=== PATIENT | male | born 1945 | race Caucasian/White ===

== ENCOUNTER 2022-11-19 09:25 | Observation (INO) | payer MEDICARE, OTHER, SELFPAY ==
[2022-11-19] VITALS (7 sets, daily range): BP systolic 159–171; BP diastolic 78–88; PULSE 64–74; RESP 16–20; TEMP 36.4–36.8; O2SAT 93–97; BMI 26.4; BMI 27.6
--- NOTE | 2022-11-19 09:41 | CT_ITS ---
The [address] [address] Patient Name: KP SPEARS MRN: [id number] date: 1945 Sex: M Assigned Patient Location: ER Current Patient Location: Accession/Order Number: [id number] Exam Date: 11/19/2022 09:50 Report Date: 11/19/2022 10:17 At the request of: EDER CALDERON Procedure: CT chest wo con EXAM: CT chest wo con; [id number] REASON FOR EXAM: fall right side chest wall trauma TECHNIQUE: Helical CT images of the chest were obtained without contrast. Multiplanar reformats and maximum intensity projection images were generated at the scanner. Dose reduction technique used: Automated exposure control and/or adjustment of the mA and/or kV according to patient size and/or use of iterative reconstruction technique. COMPARISON: None FINDINGS: Note: Compared with contrasted CT exams, noncontrast images are less sensitive for the detection of various types of soft tissue, solid organ, and vascular pathologies. Chest: Support devices: None. Visualized Thyroid: Multinodular goiter with extension into the superior mediastinum. Chest wall: Mild bilateral gynecomastia. Deen/mediastinum/esophagus: No mass. Thoracic lymph nodes: Scattered benign granulomas calcifications are present within several mediastinal and bilateral hilar lymph nodes. No significant adenopathy. Heart and vasculature: -No pericardial effusion or aortic aneurysm. -Mitral and aortic valve replacements are present. -Moderate coronary artery calcifications. Visualized portions of the upper abdomen: Within normal limits. Musculoskeletal: -Nondisplaced fractures of the lateral right third through eighth ribs. -Healed left-sided rib fractures noted. Severe osteoarthritis of the left glenohumeral joint. Lungs/airways: -Solid 7 mm nodule in the anterolateral aspect of the right upper lobe (series 4 image 38). -Solid 6 mm nodule in the right middle lobe (series 4 image 53). -Solid 4 mm nodule in the caudal aspect of the right middle lobe (series 4 image 69). -Solid 5 mm nodule in the lateral aspect of the right lower lobe (series 4 image 63). -Solid 7 mm nodule in the cranial aspect of the left upper lobe (series 4 image 22). -Solid 7 mm nodule in the anterior aspect of the mid left upper lobe (series 7 image 39). -There are a few additional 5 mm and less solid nodules in both lungs. -No evidence of pneumonia. -The central airways are patent. Pleura: No pleural effusion or pneumothorax. CT/CT chest wo con IMPRESSION: 1. Acute nondisplaced fractures of the right third through eighth ribs. No pneumothorax or evidence of hemothorax. 2. Multiple solid nodules in both lungs measuring up to 7 mm in size. In the absence of known malignancy or immunocompromise, consensus guidelines for multiple solid lung nodules 0.6 cm or greater: -Low risk: CT at 3-6 months, then consider CT at 18-24 months if stable. -High risk: CT at 3-6 months, then CT at 18-24 months if stable. (Ref: Garry, et al. Radiology 2017) Electronically authenticated by: EKATERINA ECHEVERRIA Date: 11/19/2022 10:17
--- NOTE | 2022-11-19 09:42 | ED.FALL1 ---
HPI - Fall General Chief Complaint: Fall Stated Complaint: R RIB PAIN/ARM LACERATION Time Seen by Provider: 11/19/22 09:35 Source: patient Mode of arrival: ambulance History of Present Illness HPI Narrative: The patient presenting to us with a right-sided chest wall pain that started after he fell down and tripped while in the garage, according to the patient he fell backwards using his walker he did not hit his head he had his chest wall against the truck, the patient had no other complaints The last time he had a tetanus booster was unknown Related Data Home Medications Medication Instructions Recorded Confirmed amlodipine 5 mg tablet 5 mg PO DAILY 11/19/22 11/19/22 atenolol 50 mg tablet 50 mg PO DAILY 11/19/22 11/19/22 atorvastatin 20 mg tablet 20 mg PO DAILY 11/19/22 11/19/22 clopidogrel 75 mg tablet 75 mg PO DAILY 11/19/22 11/19/22 duloxetine 60 mg capsule,delayed 60 mg PO DAILY 11/19/22 11/19/22 release lisinopril 2.5 mg tablet 2.5 mg PO DAILY 11/19/22 11/19/22 pantoprazole 40 mg tablet,delayed 40 mg PO DAILY 11/19/22 11/19/22 release tamsulosin 0.4 mg capsule 0.4 mg PO DAILY 11/19/22 11/19/22 Allergies Allergy/AdvReac Type Severity Reaction Status Date / Time No Known Drug Allergies Allergy Verified 11/19/22 09:35 Review of Systems ROS Status of ROS 10 or more systems reviewed and unremarkable except as noted in history and below Exam Narrative Exam Narrative: Nurses notes and vital signs reviewed and patient is not hypoxic. General: Well-appearing and in no apparent distress. Skin: Warm, dry, no pallor noted. No rash. Head: Normocephalic, atraumatic. Neck: Supple, non-tender. Eye: Pupils are equal, round and EOMI. No scleral icterus. Ears, Nose, Mouth, and Throat: TM are clear, no nasal mucosal hypertrophy. Oral mucosa is moist, no posterior oropharynx erythema, uvula is mid-line Cardiovascular: Regular Rate and Rhythm without murmur, gallop or rub. Respiratory: No accessory muscle use or respiratory distress. Lungs are clear to auscultation, no wheezing, rales or rhonchi Chest Wall: Tenderness upon palpation of the right-sided chest wall from the mid chest downward there is no ecchymosis, Back: No midline thoracic or lumbar vertebral tenderness. No CVA tenderness Musculoskeletal: normal ROM, no calf or popliteal tenderness, no lower extremity edema/swelling, the patient has a brace in the right leg mostly for foot drop, patient have a 3 superficial abrasion on the posterior aspect of the right elbow no tenderness upon palpation of the bony prominences GI: Abdomen is soft, non-distended. Normal bowel sounds. No masses appreciated. No tenderness to palpation. No rebound, guarding, or rigidity noted. Neurological: A&O x4. No cranial nerve dysfunction observed. No truncal ataxia. Moves all extremities. Sensation intact. Psychiatric: Cooperative and interactive. Normal mood and affect. Constitutional Vital Signs, click to edit/add: Last Vital Signs Temp 98.2 F 11/19/22 09:32 Pulse 74 11/19/22 09:32 Resp 20 11/19/22 09:32 BP 171/83 H 11/19/22 09:32 Pulse Ox 97 11/19/22 09:32 O2 Del Method Room Air 11/19/22 09:32 Course Vital Signs Vital signs: Vital Signs Temperature 98.2 F 11/19/22 09:32 Pulse Rate 74 11/19/22 09:32 Respiratory Rate 20 11/19/22 09:32 Blood Pressure 171/83 H 11/19/22 09:32 Pulse Oximetry 97 11/19/22 09:32 Oxygen Delivery Method Room Air 11/19/22 09:32 Temperature 98.2 F 11/19/22 09:32 Pulse Rate 74 11/19/22 09:32 Respiratory Rate 20 11/19/22 09:32 Blood Pressure 171/83 H 11/19/22 09:32 Pulse Oximetry 97 11/19/22 09:32 Oxygen Delivery Method Room Air 11/19/22 09:32 MDM - Fall MDM Narrative Medical decision making narrative: pt to refused to have an x-ray for his right elbow because he did not have any pain Tetanus booster provided CT of the chest wall shows that the patient had multiple rib fractures from the third to the 8 there was no hemothorax or pneumothorax The patient was not able to get out of the bed because of the pain he will be admitted for further management I spoke with Dr. Nari and she agreed to admit the patient for further evaluation Discharge Plan Discharge Chief Complaint: Fall Clinical Impression: Multiple fractures of ribs Patient Disposition: Admitted As Inpatient Time of Disposition Decision: 11:27 Condition: Good
[2022-11-19] MEDS: ADACEL DIPH,PERTUSS(ACELL),TET VAC/PF 0.5 ML ADULT SYRINGE IM (10:52)
--- NOTE | 2022-11-19 11:47 | P.HP_ITS ---
H&P: HPI History of Present Illness Chief complaint: R RIB PAIN/ARM LACERATION, MULTIPLE RIB FRACTURES Narrative: patient is a 77-year-old male with past medical history of hypertension, coronary artery disease, artificial aortic valve, status post ischemic stroke with right-sided hemo-plegia 3.5 years ago, multiple orthopedic procedures for osteoarthritis. Patient reports they recently got back from [place] to visit family and he was in his garage trying to maneuver his walker from the garage back into the house up a few stairs when he lost his balance and fell back into the truck. He then landed on the concrete floor. He said he laid there until EMS arrived. His fall was witnessed by his , there was no loss of consciousness he also suffered an abrasion to the right upper extremity, and noted a audible pop in his back when he fell. On presentation to the Emergency Room there was a CT scan of the chest which showed nondisplaced rib fractures on the right ribs three through eight. There is no evidence of pneumothorax. At the time of admission exam patient denies any acute respirator distress, and says pain is controlled. He does take Plavix daily since his valve replacement surgery. Review of Systems ROS Narrative ROS: a complete review of systems were reviewed with patient and are positive as below or listed in History of Chief Complaint. General: no fever, chills, night sweats Head: no headache, trauma, visual changes, nausea or vomiting Skin: no reported rashes, itching or sores Eyes: no blurriness of vision Ears: no reported hearing loss, vertigo, earache, or tinnitus Throat: no sore throat, hoarseness, swelling of neck, or tongue pain Heart: no chest pain Lungs: no shortness of breath or cough, rib pain on the right GI: no diarrhea or vomiting/nausea Urinary: no urinary urgency, frequency or pain Neuro: no numbness or tingling, weakness of the right hand/arm and right foot drop from prior stroke HEM: no bleeding issues or bruising ENDO: no thyroid problems Psych: no anxiety or depression [facility] Medical History (Updated 11/19/22 @ 12:56 by Ashley Nair DO) Surgical History Family History Grandmother Family history of CHF (congestive heart failure) Mother Family history of hypertension Social History Within the past year, how often did you have a drink containing alcohol: monthly or less Within the past year, how many standard drinks containing alcohol did you have on a typical day: 1 or 2 Within the past year, how often did you have six or more drinks on one occasion: never Total score: 0 Score interpretation: A score less than 4 is consistent with normal alcohol consumption. Smoking status: Never smoker Non-prescribed substance use: denies use Previous occupational history: retired Highest level of school completed/degree received: some college, no degree Are you now , , , , never or living with a partner: In a typical week, how many times do you talk on the telephone with family, friends, or neighbors: 3 or more times per week How often do you get together with friends or relatives: 3 or more times per week How often do you attend cheondoism or catholic services: 4 or more times per year Do you belong to any clubs or organizations such as cheondoism groups unions, [employer] or athletic groups, or school groups: no Total score: 3 Score interpretation: A score of greater than or equal to 2 indicates the lowest level of social isolation. Little interest or pleasure in doing things: not at all Feeling down, depressed, or hopeless: not at all Feel stressed/tense/nervous/anxious/difficulty sleeping: not at all Do you think of yourself as: straight/heterosexual Gender Identity: male Meds Home Medications and Allergies Home Medications Medication Instructions Recorded Confirmed Type amlodipine 5 mg tablet 5 mg PO DAILY 11/19/22 11/19/22 History atenolol 50 mg tablet 50 mg PO DAILY 11/19/22 11/19/22 History atorvastatin 20 mg tablet 20 mg PO DAILY 11/19/22 11/19/22 History clopidogrel 75 mg tablet 75 mg PO DAILY 11/19/22 11/19/22 History duloxetine 60 mg capsule,delayed 60 mg PO DAILY 11/19/22 11/19/22 History release lisinopril 2.5 mg tablet 2.5 mg PO DAILY 11/19/22 11/19/22 History pantoprazole 40 mg tablet,delayed 40 mg PO DAILY 11/19/22 11/19/22 History release tamsulosin 0.4 mg capsule 0.4 mg PO DAILY 11/19/22 11/19/22 History Allergies Allergy/AdvReac Type Severity Reaction Status Date / Time No Known Drug Allergies Allergy Verified 11/19/22 09:35 Exam Narrative Exam Narrative: General: Patient is alert, and oriented to person, place and time with normal affect, proper hygiene Skin: no visible rashes, or ulcers, ecchymosis on bilateral upper extremities, with right upper extremity skin tear Head: atraumatic, acephalic Eyes: PERRLA, no nystagmus present, conjunctiva clear, no scleral icterus Ears: normal gross auditory acuity Nose: symmetric, no discharge, no maxillary or frontal sinus tenderness Mouth/Throat: no erythema, exudate, or tonsillar enlargement, normal dentition Neck: no masses palpated, normal thyroid, no JVD or audible carotid bruits Heart: Normal rate and rhythm, no murmurs/rubs/gallops Lungs: no audible wheezes, crackles and normal breath sounds all lung chang Abdomen: Normal audible bowel sounds, no distension, No palpable masses, no organomegaly, no rebound/guarding/ or rigidity Musculoskeletal: muscle atrophy noted, ROM is limited due to being in hospital bed, no swelling bilateral lower extremities Vascular: Normal carotid, radial, femoral, posterior tibial, and dorsalis pedis pulses Lymph: no supraclavicular, axillary, or anterior/posterior cervical adenopathy Neuro: CN II-X grossly intact, normal sensation upper and lower extremities Constitutional Vital Signs, click to edit/add: Last Vital Signs Temp 98.2 F 11/19/22 09:32 Pulse 69 11/19/22 11:35 Resp 16 11/19/22 11:35 BP 164/86 H 11/19/22 11:35 Pulse Ox 96 11/19/22 11:44 O2 Del Method Room Air 11/19/22 11:44 Assessment and Plan Assessment and Plan (1) Rib pain on right side: Assessment and Plan: the Emergency Room did not perform any lab work, given the patient is on Plavix will check a CBC to get a baseline hemoglobin and hematocrit, will also check a CMP to get baseline renal function to know what can Be provided for pain control. I do feel that the risks outweigh the benefits of holding his Plavix so I will continue his Plavix at this time. We will monitor his abrasion on his arm and provide pain control as needed for his rib pain. PRN percocet, topical lidoderm and ice to the area. PEP therapy to maintain lung function; PT/OT (2) Multiple fractures of ribs: Assessment and Plan: pain control, monitor blood counts Qualifiers: Encounter type: initial encounter Fracture type: closed Laterality: right Qualified Code(s): S22.41XA - Multiple fractures of ribs, right side, initial encounter for closed fracture (3) Hyperlipidemia: Assessment and Plan: continue statin (4) Hypertension: Assessment and Plan: continue home medications (5) GERD (gastroesophageal reflux disease): Assessment and Plan: continue PPI (6) Ischemic stroke with paralysis: Assessment and Plan: 3 years ago, affected the right side of body, continue plavix and statin therapy. uses a walker at baseline. Plan full code plavix, SCD's for DVT prophylaxis observation status and is not expected to stay more than 2 midnights
[2022-11-19] MEDS: LIDOCAINE 5% PATCH 1 PATCH TOPICAL (13:29)
[2022-11-19 14:18] LABS: Basophils Percent Auto 0.2 % (0.2-2.0); Eosinophils Absolute Auto 0.1 10^3/uL (0.0-0.7); Eosinophils Percent Auto 0.6 % (0.9-7.0); Hemoglobin 15.8 g/dL (14.0-18.0); Immature Granulocytes Abs Auto 0.05 10^3/uL (0.00-0.03); Immature Granulocytes Pct Auto 0.5 % (0.0-0.5); Lymphocytes Absolute Auto 1.1 10^3/uL (1.2-3.8); Lymphocytes Percent Auto 9.9 % (20.5-60.0); Mean Corpuscular HGB Conc 35.1 g/dL (29.9-35.2); Mean Corpuscular Hemoglobin 32.2 pg (25.9-34.0); Mean Corpuscular Volume 91.6 fL (80.0-94.0); Mean Platelet Volume 8.7 fL (9.5-13.5); Monocytes Absolute Auto 0.6 10^3/uL (0.3-0.8); Monocytes Percent Auto 5.8 % (1.7-12.0); Platelet Count 121 10^3/uL (150-450); Red Blood Count 4.91 10^6/uL (4.70-6.10); Red Cell Distribution Width 13.4 % (11.0-15.0); White Blood Count 10.9 10^3/uL (4.0-11.0)
[2022-11-19 14:38] LABS: INR 1.09; Partial Thromboplastin Time 25.4 sec (22.3-36.2); Prothrombin Time 11.5 sec (9.0-11.6)
[2022-11-19 14:40] LABS: Alanine Aminotransferase 22 U/L (16-63); Albumin Globulin Ratio 0.9; Albumin Level 3.5 g/dL (3.4-5.0); Alkaline Phosphatase 78 U/L (46-116); Anion Gap 14.4; Aspartate Amino Transferase 17 U/L (15-37); BUN Creatinine Ratio 27.2; Bilirubin Total 0.9 mg/dL (0.2-1.0); Calcium 8.9 mg/dL (8.5-10.1); Carbon Dioxide 28.6 mmol/L (21.0-32.0); Chloride 101 mmol/L (98-107); Estimated GFR (African America >60 (>=60); Estimated GFR (Non-African Ame >60 (>=60); Globulin 3.7 g/dL; Glucose 109 mg/dL (74-106); Sodium 140 mmol/L (136-145); Total Protein 7.2 g/dL (6.4-8.2)
[2022-11-19] MEDS: ATENOLOL 50 MG TABLET PO (21:21)
[2022-11-19] MEDS: ATORVASTATIN CALCIUM 20 MG TABLET PO (21:21)
[2022-11-19] MEDS: TAMSULOSIN HCL 0.4 MG CAPSULE PO (21:21)
[2022-11-19] MEDS: LISINOPRIL 5 MG TABLET 2.5 MG PO (21:22)
[2022-11-20 05:09] LABS: Basophils Percent Auto 0.3 % (0.2-2.0); Eosinophils Absolute Auto 0.2 10^3/uL (0.0-0.7); Eosinophils Percent Auto 2.3 % (0.9-7.0); Hematocrit 39.7 % (42.0-54.0); Immature Granulocytes Abs Auto 0.02 10^3/uL (0.00-0.03); Immature Granulocytes Pct Auto 0.3 % (0.0-0.5); Lymphocytes Absolute Auto 1.1 10^3/uL (1.2-3.8); Lymphocytes Percent Auto 15.1 % (20.5-60.0); Mean Corpuscular HGB Conc 35.3 g/dL (29.9-35.2); Mean Corpuscular Hemoglobin 32.3 pg (25.9-34.0); Mean Corpuscular Volume 91.7 fL (80.0-94.0); Mean Platelet Volume 9.4 fL (9.5-13.5); Monocytes Absolute Auto 0.5 10^3/uL (0.3-0.8); Monocytes Percent Auto 7.1 % (1.7-12.0); Neutrophils Absolute Auto 5.6 10^3/uL (1.4-6.5); Neutrophils Percent Auto 74.9 % (43.0-75.0); Platelet Count 122 10^3/uL (150-450); Red Blood Count 4.33 10^6/uL (4.70-6.10); Red Cell Distribution Width 13.3 % (11.0-15.0); White Blood Count 7.5 10^3/uL (4.0-11.0)
[2022-11-20 05:12] VITALS: O2SAT 94
[2022-11-20 05:36] LABS: Alanine Aminotransferase 18 U/L (16-63); Alkaline Phosphatase 62 U/L (46-116); Anion Gap 6.4; Aspartate Amino Transferase 14 U/L (15-37); Bilirubin Total 1.4 mg/dL (0.2-1.0); Calcium 7.7 mg/dL (8.5-10.1); Carbon Dioxide 27.2 mmol/L (21.0-32.0); Chloride 106 mmol/L (98-107); Estimated GFR (African America >60 (>=60); Estimated GFR (Non-African Ame >60 (>=60); Glucose 93 mg/dL (74-106); Potassium 3.6 mmol/L (3.5-5.1); Sodium 136 mmol/L (136-145)
[2022-11-20] MEDS: OMEPRAZOLE 40 MG CAPSULE.DR PO (05:44)
[2022-11-20 05:49] VITALS: BP 112/65; PULSE 58; RESP 18; TEMP 36.7; O2SAT 91
[2022-11-20] MEDS: CLOPIDOGREL BISULFATE 75 MG TABLET PO (08:17)
[2022-11-20] MEDS: KETOROLAC TROMETHAMINE 30 MG/ML VIAL IVP (08:17)
[2022-11-20] MEDS: DULOXETINE HCL 60 MG CAPSULE.DR PO (08:17)
[2022-11-20] MEDS: LIDOCAINE 5% PATCH 1 PATCH TOPICAL (08:17)
--- NOTE | 2022-11-20 08:58 | REH.PTDLY ---
Physical Therapy Daily Note PT Daily Note/Assess Start: 11/20/22 08:42 Freq: Status: Active Protocol: Document 11/20/22 08:43 CHANDANA (Rec: 11/20/22 08:53 KSTEINLE [id number]) Physical Therapy Daily Note/Assessment Time In 07:50 Time Out 08:15 Pain Level 2 Pain Level 2 Subjective Pt reports pain is minimal at rest, worse when moving. Has not had pain meds since 2 AM pt thinks. Nursing reports he is not due for any at this time, but can have some Toradol. Therapeutic Exercise Minutes (minutes) 8 Therapeutic Exercise Units 1 Therapeutic Exercise Treatment Instructed in seated exs sitting bedside with cues to lean forward when performing to engage core muscles. Pt tends to lean retro in the bed holding on with hands to side of bed. B LE exs included LAQ , marching, and hip abd 15x ea . Pt has limited mobility on R LE. Therapeutic Activity Minutes (minutes) 15 Therapeutic Activity Units 1 Bed Mobility Ability Moderate Assist Chair Transfer Ability Moderate Assist Therapeutic Activity Comments Attempted to transfer on R side of bed as pt prefered, but then switched to L side due to increased pain. Cues for pt to transfer into L sidelying then push off L arm, needs Mod A to transfer into seated position. Cues once sitting for pt to scoot bottom to EOB, several cues needed with Mod A. Pt needs assist to don shoes and AFO. Sit to stand transfers with bed elevated Mod A. Gait training with RW 45 feet at slow pace with step to gait pattern. Pt prefers to not sit in the chair after gait as the chair is so low and this will be painful. Pt requires Mod A to transfer back into bed. Total Therapy Minutes 23 Total Physical Therapy Units 2 Daily Note Summary Progressed gait distance today with pt not having as much pain once he is upright. Transfers hurt the worse for patient and requires Mod A with all transfers. Pt appears to be in a lot of pain but rates at a low level, patient has high pain tolerance.
--- NOTE | 2022-11-20 10:29 | CM.NOTE ---
Rounds made with Dr. Nair. Plan for discharge today. Mr. Arguello visiting [place] from [place] and plan is to leave [place] next , November 27, 2022. While in [place] Mr. Arguello normally rides a bike throughout his community and continues to his P.T. on his own. He explained all his exercises and therapies to Dr. Nair and she was fine with his regimen. He has an appointment with his [place] PCP December 01, 2022.
--- NOTE | 2022-11-20 10:32 | PM.DS1 ---
DS: Providers Provider Date of admission: 11/19/22 11:36 Primary care physician: Dane Bravo DO Admitting clinician: Ashley Nair Consults: 11/19/22 11:50 Occupational Therapy Eval and Treat Routine Reason for consultation: rib fractures Has provider been notified: No Physical Therapy Eval and Treat Routine Reason for consultation: rib fractures Has provider been notified: No Discharging clinician: Ashley Nair DS: Diagnosis Discharge Diagnosis (1) Rib pain on right side: (2) Multiple fractures of ribs: Qualifiers: Encounter type: initial encounter Fracture type: closed Laterality: right Qualified Code(s): S22.41XA - Multiple fractures of ribs, right side, initial encounter for closed fracture (3) Hyperlipidemia: (4) Hypertension: (5) GERD (gastroesophageal reflux disease): (6) Ischemic stroke with paralysis: DS: Summary Hospital Course Hospital Course: patient is a 77-year-old male with past medical history of hypertension, coronary artery disease, artificial aortic valve, status post ischemic stroke with right-sided hemo-plegia 3.5 years ago, multiple orthopedic procedures for osteoarthritis. Patient reports they recently got back from [place] to visit family and he was in his garage trying to maneuver his walker from the garage back into the house up a few stairs when he lost his balance and fell back into the truck. He then landed on the concrete floor. He said he laid there until EMS arrived. His fall was witnessed by his , there was no loss of consciousness he also suffered an abrasion to the right upper extremity, and noted a audible pop in his back when he fell. On presentation to the Emergency Room there was a CT scan of the chest which showed nondisplaced rib fractures on the right ribs three through eight. There is no evidence of pneumothorax. At the time of admission exam patient denies any acute respiratory distress, and says pain is controlled. He does take Plavix daily since his valve replacement surgery. at the time of discharge he did well with pt/ot, he has close outpatient follow up. He is provided pain control with percocet and lidoderm patch. take home Pep therapy. Blood counts stable this morning. Use Miralax daily while on pain medication. No changes to other home medications. Status at Discharge Functional status at discharge: uses cane/walker Overall status at discharge: patient is progressing back to baseline Time Spent with Patient Time attestation: Total time spent providing and/or coordinating discharge services: Time spent: less than 30 minutes Exam Narrative Exam Narrative: General: Patient is alert, and oriented to person, place and time with normal affect, proper hygiene Skin: no visible rashes, or ulcers, ecchymosis on bilateral upper extremities, with right upper extremity skin tear, dressing c/d/i Head: atraumatic, acephalic Eyes: PERRLA, no nystagmus present, conjunctiva clear, no scleral icterus Ears: normal gross auditory acuity Nose: symmetric, no discharge, no maxillary or frontal sinus tenderness Mouth/Throat: no erythema, exudate, or tonsillar enlargement, normal dentition Neck: no masses palpated, normal thyroid, no JVD or audible carotid bruits Heart: Normal rate and rhythm, no murmurs/rubs/gallops Lungs: no audible wheezes, crackles and normal breath sounds all lung chang Abdomen: Normal audible bowel sounds, no distension, No palpable masses, no organomegaly, no rebound/guarding/ or rigidity Musculoskeletal: muscle atrophy noted, ROM is limited due to being in hospital bed, no swelling bilateral lower extremities Vascular: Normal carotid, radial, femoral, posterior tibial, and dorsalis pedis pulses Lymph: no supraclavicular, axillary, or anterior/posterior cervical adenopathy Neuro: CN II-X grossly intact, normal sensation upper and lower extremities Constitutional Vital Signs, click to edit/add: Last Vital Signs Temp 98.1 F 11/20/22 05:49 Pulse 58 L 11/20/22 05:49 Resp 18 11/20/22 05:49 BP 112/65 11/20/22 05:49 Pulse Ox 91 L 11/20/22 05:49 O2 Del Method Room Air 11/20/22 05:49 DS: Data Data Completed and Pending Labs on day of discharge: Labs from last 24 hours 11/20/22 11/19/22 04:14 14:00 WBC 7.5 10.9 RBC 4.33 L 4.91 Hgb 14.0 15.8 Hct 39.7 L 45.0 MCV 91.7 91.6 MCH 32.3 32.2 MCHC 35.3 H 35.1 RDW 13.3 13.4 Plt Count 122 L 121 L MPV 9.4 L 8.7 L Neut % (Auto) 74.9 83.0 H Lymph % (Auto) 15.1 L 9.9 L Boyd % (Auto) 7.1 5.8 Eos % (Auto) 2.3 0.6 L Baso % (Auto) 0.3 0.2 Neut # (Auto) 5.6 9.0 H Lymph # (Auto) 1.1 L 1.1 L Boyd # (Auto) 0.5 0.6 Eos # (Auto) 0.2 0.1 Baso # (Auto) 0.0 0.0 Abs Immat Gran (auto) 0.02 0.05 H Imm/Tot Granulo (auto) 0.3 0.5 PT 11.5 INR 1.09 APTT 25.4 Sodium 136 140 Potassium 3.6 4.0 Chloride 106 101 Carbon Dioxide 27.2 28.6 Anion Gap 6.4 14.4 BUN 23.0 H 25.0 H Creatinine 1.00 0.92 Est GFR ( Amer) >60 >60 Est GFR (Non-Af Amer) >60 >60 BUN/Creatinine Ratio 23.0 27.2 Glucose 93 109 H Calcium 7.7 L 8.9 Total Bilirubin 1.4 H 0.9 AST 14 L 17 ALT 18 22 Alkaline Phosphatase 62 78 Total Protein 6.0 L 7.2 Albumin 3.0 L 3.5 Globulin 3.0 3.7 Albumin/Globulin Ratio 1.0 0.9 Discharge Plan Discharge Disposition: Home, Self-Care Condition: Good Discharge Medications: New polyethylene glycol 3350 17 gram Powder In Packet 17 g PO QD PRN (Reason: Constipation) 7 Days Qty: 30 0RF oxycodone-acetaminophen 5-325 mg Tablet 1 tab PO Q6H PRN (Reason: rib pain) 3 Days Qty: 12 0RF Rx Instructions: ICD 10: R07.81,S22.49XA lidocaine 5 % Adhesive Patch,Medicated 1 patch topical QD 30 Days Qty: 30 0RF Rx Instructions: apply to right side of ribs/chest Continued amlodipine 5 mg tablet 5 mg PO DAILY atenolol 50 mg tablet 50 mg PO DAILY atorvastatin 20 mg tablet 20 mg PO DAILY clopidogrel 75 mg tablet 75 mg PO DAILY duloxetine 60 mg capsule,delayed release(DR/EC) 60 mg PO DAILY pantoprazole 40 mg tablet,delayed release (DR/EC) 40 mg PO DAILY tamsulosin 0.4 mg capsule 0.4 mg PO DAILY lisinopril 2.5 mg tablet 2.5 mg PO DAILY Activity: ambulate only with your walker and as per physical therapy Diet: advance to your usual diet Patient Instructions: Rib Fracture (DC), Fall Prevention for Older Adults (DC) Forms: Portal Instructions Referrals: Dane Bravo DO [Primary Care Provider] - 1 week Follow Up Appointments: Follow up appt. with Dr. Walters on @ 10:45am Office #: [phone] New office address: [address] [place] [address]
--- NOTE | 2022-11-20 10:41 | SWNOTE1 ---
GENESIS met with pt to discuss dc needs. Pt and his live in [place], they are up visiting children/grandchildren. There plan is to return to [place] next , they will be flying back. Pt already has a follow up scheduled for December 01 with his PCP in [place]. Physical therapy did recommend HH, but since they are heading back to [place] within a week, they will follow up with his PCP in regards to home health. Pt does use a walker at home. At this time they do not have any concerns about discharge. Pt's did ask about what all he can do and how she can help him get around. Pt stated he will let her know how to help and if something hurts, etc. GENESIS reviewed [facility] form with pt and , they both voiced understanding. Pt's signed form, original given to pt and copy placed in chart.
[2022-11-20 11:26] VITALS: O2SAT 93
--- NOTE | 2022-11-21 14:27 | CM.DCFOLLOWU ---
No answer 11/21
--- NOTE | 2022-11-25 10:31 | CM.DCFOLLOWU ---
Second attempt at discharge follow up call completed 11/25 with no answer.
== END 2022-11-20 11:18 | disposition home or self-care (01) ==
LOC: ER 11:27 → MS 20:04
PROVIDERS: Admitting Provider Family Medicine; Emergency Provider Emergency Medicine; PCP Internal Medicine; Visit Provider Family Medicine
DX: S22.41XA Multiple fractures of ribs, right side, initial encounter for closed fracture (principal); I69.351 Hemiplegia and hemiparesis following cerebral infarction affecting right dominant side; E78.5 Hyperlipidemia, unspecified; I10 Essential (primary) hypertension; K21.9 Gastro-esophageal reflux disease without esophagitis; I25.10 Atherosclerotic heart disease of native coronary artery without angina pectoris; Z95.2 Presence of prosthetic heart valve; W19.XXXA Unspecified fall, initial encounter; Z79.899 Other long term (current) drug therapy; Z79.02 Long term (current) use of antithrombotics/antiplatelets; Z23 Encounter for immunization
CPT/HCPCS: 36415; 71250; 80053; 85025; 85610; 85730; 90471; 90715; 94667; 94761; 96374; 97110; 97161; 97165; 97530; 97535; 99285; G0378